=== PATIENT | female | born 1975 | race Caucasian/White ===

== ENCOUNTER 2022-03-30 16:19 | Outpatient (CLI) | payer OTHER, SELFPAY ==
--- NOTE | 2022-03-30 16:28 | ECG_ITS ---
Measurements Intervals [place] Rate: 86 P: 71 MO: 145 QRS: 77 QRSD: 90 T: 71 QT: 361 QTc: 432 Interpretive Statements SINUS RHYTHM NORMAL ECG Electronically Signed On 03-30-2022 16:50:25 CDT by Vineet Menchaca D.O.
[2022-03-30 17:10] LABS: Anion Gap 9 mmol/L (8-16); Blood Urea Nitrogen 10 mg/dL (7-17); Calcium 9.2 mg/dL (8.4-10.2); Carbon Dioxide 26 mmol/L (22-30); Chloride 104 mmol/L (98-107); Estimated Glomerular Filt Rate > 60; Glucose 141 mg/dL (65-110); Potassium 3.4 mmol/L (3.4-5.0); Sodium 139 mmol/L (137-145)
== END 2022-03-30 16:20 | disposition home or self-care (01) ==
PROVIDERS: PCP Internal Medicine Infectious Disease; Referring Provider Obstetrics & Gynecology; Visit Provider Anesthesiology
DX: E11.9 Type 2 diabetes mellitus without complications (principal); Z85.3 Personal history of malignant neoplasm of breast; I10 Essential (primary) hypertension
CPT/HCPCS: 36415; 80048; 86850; 86900; 86901; 93005

== ENCOUNTER 2022-04-03 00:05 | Day surgery (SDC) | payer OTHER, SELFPAY ==
[2022-03-26 14:36] VITALS: BMI 26.3
--- NOTE | 2022-03-26 14:38 | PC.NURSE ---
Report to the Outpatient Waiting Room, entrance under the green pavilion located off [facility], at 0600 on 04-03-22. OR Time: 0730. - You and your visitor will be asked a series of questions to screen for COVID 19 for your protection. - Only one visitor is allowed at this time. - The patient visitor is requested to leave or wait in car when not with patient. - A mask is required within the hospital. Patients may have clear liquids (water, carbonated beverages, clear teas, apple juice) until 3 hours prior to surgery with a maximum of 20 ounces. 0430 - No food from midnight until time of surgery - Infants may have breast milk until 4 hours before surgery, infant formula 6 hours prior to surgery. - Children will be allowed to drink immediately following surgery. If applicable, please bring a bottle or sippy cup to assist with drinking. Juice, water, soda, and popsicles are readily available. For infants on formula, please bring formula the day of surgery. Pacifiers are allowed. Take the following medications with a SIP of water the morning of surgery: None Medications to discontinue per physician: N/A Please no make-up, nail lithuanian, hairspray, perfume, deodorant, or body powder the day of surgery. No jewelry (including any body piercings) or valuables the day of surgery, leave them at home. Please take a shower or bath the night before, or the morning of, surgery with an antibacterial soap. Wear comfortable, loose fitting clothing. Children are encouraged to wear pajamas. - Jewelry must be removed prior to entering the operating room. Rings and piercings that are not removed may be cut off. - The hospital will not accept responsibility for valuables. - Please leave all valuables, including medications, at home the day of surgery. If you are going home after surgery, a licensed sales warehouse driver must drive you home. - NO public transportation without another adult. - We recommend that an adult stay with you for 24 hours following discharge. - We also recommend that you do not drive, make important decision, drink alcoholic beverages, or take any drugs that were not prescribed by your health care provider for at least 24 hours after your discharge time. For Pediatric surgeries, we recommend two adults accompany the child home (only one inside the building at this time). Follow any additional instructions given to you from your surgeon. If you or anyone in your household have experienced Covid symptoms in the past week, please notify your surgeon or the nurse liaison at the phone number below for possible testing. Telephone instructions given to Adelaida Villeda and asked if any additional questions and then verbalized understanding. Patient advised to call surgeon office or pre surgery nurse liaison [phone] if any additional questions.
[2022-04-03] VITALS (9 sets, daily range): BP systolic 84–140; BP diastolic 49–80; PULSE 62–104; RESP 11–18; TEMP 36.4–36.7; O2SAT 95–100
--- NOTE | 2022-04-03 06:50 | WPDANESEPPF ---
Anes - Initial Pre Proc Eval Procedure: Operation Date: 04/03/22 07:30 Proposed Procedures p Total Laparoscopic Hysterectomy with Bilateral Salpingo Oophorectomy - Lisseth Guardado MD Date/Time: 04/03/22 06:50 Surgeon: Lisseth Guardado MD Pre Op Diagnosis: hx of breast malignant neoplasm Patient Data Age: 46 Gender: F Height: 1.61 m Weight: 68.49 kg Allergies Allergy/AdvReac Type Severity Reaction Status Date / Time Contrast Media Allergy Intermediate HIVES Uncoded 03/26/22 14:01 Home Medications Medication Instructions Recorded Confirmed Type atorvastatin 40 mg tablet 40 mg PO HS 03/26/22 03/26/22 History metformin 500 mg tablet 500 mg PO BID 03/26/22 03/26/22 History valsartan 160 1 tablet PO DAILY 03/26/22 03/26/22 History mg-hydrochlorothiazide 12.5 mg tablet venlafaxine 150 mg 150 mg PO DAILY 03/26/22 03/26/22 History capsule,extended release 24 hr Patient hx anesthesia problems: none Family hx anesthesia problems: none Results Review: All pre-operative results and documents have been reviewed as part of the pre-operative evaluation. [facility] Past Medical History Medical History Breast cancer HTN (hypertension) Hyperlipidemia Smoker Surgical History Surgical History (Updated 04/03/22 @ 06:51 by Clay Fan MD) H/O umbilical hernia repair History of section History of cholecystectomy History of mastectomy History of tubal ligation Social History Social History Smoking packs per day: 1 Smoking cigarettes per day: 20.0 Years smoked: 14 Smoking pack-years: 14.00 Smoking status: Current every day smoker Tobacco type: cigarettes Second hand tobacco smoke exposure: No Alcohol intake: current Alcohol use details: occasionally Substance use: never Substance use type: does not use Living arrangements: other Spiritual care concerns: No Anes - Eval Final PreProcedure Day of Procedure 04/03/22 06:50 Patient weight: overweight Heart: regular rate and rhythm Lungs: clear to auscultation Neurological: alert and oriented Last oral intake: >/= 8 hours ASA classification: III Emergent: no Anesthetic plan: proceed Anesthesia type and monitoring: general ETT and standard monitoring Results Review: All pre-operative results and documents have been reviewed as part of the pre-operative evaluation. Informed Consent: The patient's anesthetic plan and its attendant risks and benefits were discussed with the patient/family/POA. Questions were solicited and answers provided to the satisfaction of the patient/family/POA.
--- NOTE | 2022-04-03 07:13 | WPDHPUPDATE1 ---
History and Physical Update Update Date/Time: 04/03/22 07:13 History and Physical has been reviewed, including an updated exam of the patient. There are NO changes in the patient's condition. Risks, benefits, and alternatives have been discussed and questions answered. Patient agrees to proceed with procedure.
--- NOTE | 2022-04-03 07:16 | PM.IMHP ---
H&P: HPI History of Present Illness Date/Time: 04/03/22 07:16 Chief Complaint: Breast malignancy Narrative: This patient is a 46-year-old female with breast malignancy. She has been treated recently. She would like to proceed with total laparoscopic hysterectomy and bilateral salpingo-oophorectomy. She understands there is risk. She understands that injuries may occur that result in hospitalization, more surgery, and severe illness. She understands there is risk of hemorrhage and infection. Review of Systems Review of Systems: All systems reviewed & are unremarkable except as noted in HPI and below Constitutional: Constitutional: Denies chills, Denies fatigue, Denies fever(s) and Denies weakness Eyes: Eyes: Denies blurry vision, Denies change in vision, Denies loss of peripheral vision, Denies loss of vision, Denies other visual disturbances and Denies eye pain ENT: Denies vertigo, Denies dizziness, Denies hearing loss, Denies mouth pain, Denies nasal obstruction, Denies neck mass and Denies neck pain Cardiovascular: Cardiovascular: Denies chest pain, Denies diaphoresis, Denies syncope, Denies leg edema and Denies dyspnea Respiratory: Respiratory: Denies chest congestion, Denies cough, Denies hemoptysis, Denies dyspnea and Denies wheezing Gastrointestinal: Gastrointestinal: Denies abdominal pain, Denies constipation, Denies diarrhea, Denies nausea and Denies vomiting Genitourinary: Genitourinary: Denies hematuria, Denies change in libido, Denies nocturia, Denies genital lesions, Denies flank pain and Denies urinary urgency Musculoskeletal: Musculoskeletal: Denies abnormal gait, Denies back pain, Denies myalgias, Denies arthralgias, Denies joint swelling, Denies muscle weakness and Denies neck pain Integumentary/Breasts: Skin/Breast: Denies swelling, Denies breast pain, Denies breast mass, Denies dry skin, Denies nipple discharge, Denies unusual bruising and Denies jaundice Neurologic: Denies Neuro-related abnormal movements, Denies Abnormal speech present, Denies abnormal gait, Denies behavioral changes, Denies confusion, Denies vertigo, Denies dizziness, Denies syncope, Denies loss of vision, Denies memory loss, Denies convulsions and Denies weakness Psychiatric: Psychiatric: Denies abnormal sleep pattern, Denies behavioral changes, Denies change in libido, Denies confusion, Denies depression, Denies anhedonia and Denies memory loss Endocrine: Endocrine: Reports no additional endocrine complaints, Denies change in libido and Denies fatigue Hematologic/Lymphatic: Hematologic/Lymphatic: Reports no additional hematologic/lymphatic complaints Allergic/Immunologic: Allergic/Immunologic: Reports no additional allergic/immunologic complaints and Denies wheezing PMFSH Past Medical History Medical History Breast cancer HTN (hypertension) Hyperlipidemia Smoker Surgical History Surgical History (Updated 04/03/22 @ 06:51 by Clay Fan MD) H/O umbilical hernia repair History of section History of cholecystectomy History of mastectomy History of tubal ligation Social History Social History Smoking packs per day: 1 Smoking cigarettes per day: 20.0 Years smoked: 14 Smoking pack-years: 14.00 Smoking status: Current every day smoker Tobacco type: cigarettes Second hand tobacco smoke exposure: No Alcohol intake: current Alcohol use details: occasionally Substance use: never Substance use type: does not use Living arrangements: other Spiritual care concerns: No Meds Home Medications and Allergies Home Medications Medication Instructions Recorded Confirmed Type atorvastatin 40 mg tablet 40 mg PO HS 03/26/22 04/03/22 History metformin 500 mg tablet 500 mg PO BID 03/26/22 04/03/22 History valsartan 160 1 tablet PO DAILY 03/26/22 04/03/22 History mg-hydrochlorothiazide 12.5 mg tablet venlafaxine 150 mg 150 mg PO DENA
[2022-04-03 07:17] LABS: Glucose Point of Care 157 mg/dl (65-105)
[2022-04-03] MEDS: LACTATED RINGERS 1,000 ML 30 ML IV CONT ×2 (07:21→10:32)
[2022-04-03] MEDS: KETOROLAC 15 MG/ML VIAL (*BKC) IV PUSH (07:22)
[2022-04-03] MEDS: ACETAMINOPHEN 500 MG TABLET 1000 MG PO (07:22)
--- NOTE | 2022-04-03 08:10 | SUR.PREOP ---
0793 dr ann informed pt delay in procedure
[2022-04-03] MEDS: SCOPOLAMINE 1.5 MG PATCH TRANSDERM (08:22)
--- NOTE | 2022-04-03 10:39 | W.PM.PROC2 ---
Procedure Note - Detailed Date of Procedure 04/03/22 Pre-op Diagnosis hx of breast malignant neoplasm, inherited familial cancer predisposition Post-op Diagnosis Same Procedure Performed Total laparoscopic hysterectomy and bilateral salpingo-oophorectomy. Adhesiolysis-30 minutes Surgeon Lisseth Guardado MD Anesthesia General Indications Breast cancer, inherited familial cancer predisposition. Findings Normal appearing tubes ovaries and uterus, uterus was mildly enlarged. Description of Procedure This patient was taken to the operating room. She was prepped and draped in the dorsal lithotomy position after induction of general anesthesia. The uterine manipulator and Rufus cup were placed. This was done with a speculum and tenaculum. The speculum was placed. The cervix was grasped with a tenaculum. The stay sutures were placed at 3 and 9:00 a.m.. The stay sutures of 0 Vicryl were brought through the appropriately sized Rufus cup. The tip of the AYAD manipulator was placed in the intrauterine cavity. The cup was slid into place around the cervix and into the fornices. It was locked into place. The sutures were then wrapped around the handle and tied under tension. A 5 mm skin incision was made in the left upper quadrant the abdomen. A 5 mm trocar was inserted into the intrauterine cavity under direct visualization of the scope. Pneumoperitoneum was achieved. A left lower quadrant 11 mm incision was made with scalpel. An 11 mm trocar was inserted into the anterior abdominal cavity under direct visualization the scope. A 5 mm infraumbilical incision was made with a scalpel and a 5 mm trocar was inserted the intra-abdominal cavity under direct visualization of the scope. Adhesiolysis was performed. Adhesions between the omentum the anterior abdominal wall were significant. 30 minutes of adhesiolysis were performed. There were taken down with LigaSure cautery. Bilateral ureteral lysis was performed. This was done from the pelvic brim down to the uterine artery. This was done with careful dissection using sharp and blunt dissection. The infundibulopelvic ligaments were isolated after identification of the ureters bilaterally. These infundibulopelvic ligaments were cauterized and transected with LigaSure cautery. The para ovarian tissue was cauterized and transected with LigaSure cautery bilaterally. Moving around the ovary into the broad ligament the tissue was cauterized transected with LigaSure cautery. The round ligaments were cauterized transected with LigaSure cautery this was all done in a bilateral fashion. In a stepwise fashion along the lateral aspects of the uterus the round ligament and broad ligaments were cauterized transected down to the level of the uterine arteries. A bladder flap was created in the bladder was moved distally to the end of the cervix and over the Rufus cup. The bilateral uterine arteries were cauterized and transected. Colpotomy was then performed. In a circumferential fashion the vagina was transected using unipolar cautery. The incision was made down on the Rufus cup. The uterus, cervix, fallopian tubes and ovaries were taken out through the vagina. A pneumo occluder was placed in the vagina. The vaginal cuff was closed with a 0 V lock suture in a running fashion. The pelvis was irrigated with copious amounts antibiotic irrigation. The ureters were again examined and found to be intact and flowing freely under the uterine arteries into the bladder. The bladder was intact. It was examined directly. The vagina was irrigated with Betadine solution after removal of the Pneumo occluder. The patient was taken to recovery room. She was stable condition. Sponge lap and needle counts were correct x2. Estimated Blood Loss 100 Drains Yes Packing No Pathology Yes Complications No immediate complications Condition Stable Disposition Floor
[2022-04-03] MEDS: fentaNYL CITRATE INJ (*CRX) 100 MCG/2 ML VIAL 25 MCG IV PUSH ×4 (10:52→11:14)
[2022-04-03 11:14] LABS: Glucose Point of Care 195 mg/dl (65-105)
--- NOTE | 2022-04-03 11:56 | PC.NURSE ---
This patient, Adelaida Villeda, was received from PACU on 04/03/22 at 1156 via bed. Patient oriented to unit policies and routines
[2022-04-03] MEDS: DEXTROSE 5%/0.45% SOD CHL 1,000 ML 125 ML IV CONT (12:25)
[2022-04-03] MEDS: KETOROLAC 30 MG/ML VIAL (*BKC) IV PUSH ×2 (13:44→20:59)
[2022-04-04 05:10] VITALS: BP 123/55; PULSE 92; RESP 16; TEMP 36.1
[2022-04-04] MEDS: KETOROLAC 30 MG/ML VIAL (*BKC) IV PUSH (05:13)
[2022-04-04 07:40] VITALS: BP 106/61; PULSE 92; RESP 16; TEMP 36.9; O2SAT 98
--- NOTE | 2022-04-04 08:52 | WPDANESPN ---
Anes - Prog Note Post-Op Date/Time: 04/04/22 08:52 Cardiovascular status: normal Respiratory status: normal Airway patency: baseline Mental status: baseline Post-Op hydration status: normal Vital Signs: Last Vital Signs Temp 36.9 C 04/04/22 07:40 Pulse 92 04/04/22 07:40 Resp 16 04/04/22 07:40 BP 106/61 04/04/22 07:40 Pulse Ox 98 04/04/22 07:40 O2 Del Method Room Air 04/04/22 07:10 O2 Flow Rate 10 04/03/22 10:45 Pain Score (VAS): 1 I/O: Intake & Output 04/03/22 04/04/22 04/04/22 23:59 07:59 15:59 Intake Total 300 Output Total 325 Balance -25 04/03/22 11:12 POC Capillary Glucose 195 H Post-procedural complaints: none Patient Feedback: Patient satisfied with anesthetic care.
--- NOTE | 2022-04-04 09:42 | PM.GYNPNOP ---
FORGE TENDER - A/P Postoperative Procedures: Procedures Operation Date: 04/03/22 07:30 Actual Procedure Side Surgeon p Total Laparoscopic Hysterectomy with Bilateral Salpingo Oophorectomy Bilateral Lisseth Guardado MD Postoperative day: 1 Postoperative status: doing well Postoperative plan: see orders Time Spent With Patient Time: Total time spent is greater than 50% in coordination of care (as documented) at patient's floor/unit and/or counseling patient: Time with patient: less than 15 minutes FORGE TENDER- PN:Subj Post-Op Subjective Date/time seen: 04/04/22 09:42 Subjective: patient reports feeling better, patient has no complaints and pain is well controlled Exam Const: General: healthy appearing, comfortable and no acute distress Resp: Auscultation: clear to auscultation bilaterally, no rales, no rhonchi and no wheezes Cardio: Rate: regular rate Heart sounds: no click, no murmurs and no rubs GI: Inspection: non-distended Auscultation: normal bowel sounds Extrem: General: normal to inspection, no pedal edema and no calf tenderness FORGE TENDER - PN: Obj Data Vital Signs Vital Signs: Vital Signs - 24 hr 04/03/22 10:32 04/03/22 10:45 04/03/22 11:00 Temperature 98.1 F Pulse Rate 84 72 74 Respiratory Rate 18 12 11 L Blood Pressure 138/66 126/67 140/67 Pulse Oximetry 100 100 95 Oxygen Delivery Simple Face Mask Simple Face Mask Room Air Oxygen Flow Rate 10 10 04/03/22 11:15 04/03/22 11:30 04/03/22 12:00 Temperature 97.5 F L Pulse Rate 91 86 85 Respiratory Rate 14 13 16 Blood Pressure 133/70 128/69 128/78 Pulse Oximetry 95 95 98 Oxygen Delivery Room Air Room Air Oxygen Flow Rate 04/03/22 16:50 04/03/22 19:00 04/04/22 05:10 Temperature 97.7 F 97.7 F 97.0 F L Pulse Rate 104 H 62 92 Respiratory Rate 18 16 16 Blood Pressure 124/80 84/49 L 123/55 L Pulse Oximetry 100 Oxygen Delivery Oxygen Flow Rate 04/04/22 07:10 04/04/22 07:40 Temperature 98.4 F Pulse Rate 92 Respiratory Rate 16 Blood Pressure 106/61 Pulse Oximetry 98 Oxygen Delivery Room Air Oxygen Flow Rate Intake/Output Intake/Output: Intake & Output 07/24/22 07/25/22 07/26/22 07/27/22 23:59 23:59 23:59 23:59 Intake Total 1900 Output Total 625 Balance 1275 Meds/Results Medications: Active Medications Generic Name Dose Route Start Last Admin Trade Name Freq PRN Reason Stop Dose Admin Hydrocodone Bitart/Acetaminophen 1 tab 04/03/22 11:40 Hydrocodone/Acetaminophen (*Crx) 5-325 Mg Tablet PO Q3H PRN Pain Rated 5 or Less Hydrocodone Bitart/Acetaminophen 1 tab 04/03/22 11:40 Hydrocodone/Acetaminophen (*Crx) 10-325 Mg Tablet PO Q3H PRN Pain Rated 6 or Greater Dextrose/Sodium Chloride 1,000 mls @ 125 mls/hr 04/03/22 11:40 04/04/22 06:30 Dextrose 5% Sodium Chloride 0.45% IV CONT Not Given .Q8H YVONNE Ibuprofen 600 mg 04/03/22 11:40 Ibuprofen 600 Mg Tablet PO Q6H PRN Cramping Ketorolac Tromethamine 30 mg 04/03/22 11:40 04/04/22 05:13 Ketorolac 30 Mg/Ml Vial (*Bkc) IV PUSH 04/08/22 11:39 30 mg Q6H PRN Administration Pain Rated 4-6 Naloxone HCl 0.1 mg 04/03/22 11:40 Naloxone Hcl 0.4 Mg/Ml Vial IV PUSH Q2M PRN Respiratory rate less than 10 Ondansetron HCl 4 mg 04/03/22 11:40 Ondansetron Inj 4 Mg/2 Ml Vial IV PUSH Q6H PRN Nausea And Vomiting Labs Labs: Laboratory Results - last 24 hr 04/03/22 11:12 POC Capillary Glucose 195 H
[2022-04-04] MEDS: IBUPROFEN 600 MG TABLET PO (13:13)
== END 2022-04-04 18:46 | disposition home or self-care (01) ==
LOC: ANHSURGERY 10:00 → ANHOB2 11:42
PROVIDERS: PCP Internal Medicine Infectious Disease; Visit Provider Obstetrics & Gynecology
PROC: 0UT9FZZ Resection of Uterus, Via Natural or Artificial Opening With Percutaneous Endoscopic Assistance (ICD-10-PCS; CPT 58571; principal; 2022-04-03 07:30)
DX: Z40.02 Encounter for prophylactic removal of ovary(s) (principal); N83.202 Unspecified ovarian cyst, left side; N83.201 Unspecified ovarian cyst, right side; N73.6 Female pelvic peritoneal adhesions (postinfective); Z15.09 Genetic susceptibility to other malignant neoplasm; Z85.3 Personal history of malignant neoplasm of breast; I10 Essential (primary) hypertension; E78.5 Hyperlipidemia, unspecified; F17.210 Nicotine dependence, cigarettes, uncomplicated; Z79.84 Long term (current) use of oral hypoglycemic drugs
CPT/HCPCS: 58571; 82948; 88307; 99199; A9270; J1100; J1885; J2250; J2405; J2704; J2710; J3010; J7120

== ENCOUNTER 2022-04-09 08:53 | Emergency (ER) | payer OTHER, SELFPAY ==
--- NOTE | ~2022-04-09 | CT_ITS ---
EXAMINATION: CT abdomen pelvis wo con DATE: 04/09/2022 12:03 INDICATION: Lower abdominal pain. Hysterectomy one week ago. TECHNIQUE: Computed tomography (CT) of the abdomen and pelvis was performed without intravenous contr ast. Automated exposure control and iterative reconstruction technique were employed. Exam dose: 387 .87 mGy-cm total exam DLP. COMPARISON: 06/25/2016 CT abdomen 05/17/2013 CT abdomen pelvis FINDINGS: Evidence of left mastectomy with implant reconstruction, new findings since 06/25/2016. The lung bases are clear of infiltrate or consolidation. Normal heart size. No pericardial or pleural effusion. Status post cholecystectomy since 06/25/2016. No hepatic, splenic, pancreatic, and adrenal or renal s pace-occupying mass lesion. Approximately 10.8 cm vertical dimension of spleen, within upper normal r katherin. No bile duct or pancreatic duct dilatation. No urinary tract calculus or hydroureteronephrosis. There is atherosclerotic calcification but normal caliber of the abdominal aorta. Approximately 2.2 x 2.4 cm fat-containing umbilical hernia. Status post ventral abdominal wall mesh r epair. The urinary bladder appears unremarkable. Status post hysterectomy one week ago by clinical history. There is moderately prominent amount of hi gh density fluid in the dependent pelvis and left paracolic gutter suggesting hemorrhage. No bowel obstruction or intraperitoneal free air. No suspicious osteolytic or osteoblastic lesions. IMPRESSION: Status post hysterectomy; likely hemorrhage in the pelvis and left paracolic gutter Status post left mastectomy with breast implant reconstruction Status post cholecystectomy Ventral abdominal wall mesh repair Reviewed, dictated and finalized at [facility]. Reviewed, dictated and finalized at [facility].
[2022-04-09 08:54] VITALS: BP 146/79; PULSE 124; RESP 20; TEMP 36.6; O2SAT 99
[2022-04-09 09:07] LABS: Basophils Percent Auto 0.3 % (0.2-1.2); Eosinophils Absolute Auto 0.1 K/mm3 (0-0.3); Eosinophils Percent Auto 0.5 % (0-4.4); Hemoglobin 10.1 g/dL (12.0-15.0); Immature Granulocyte Absolute 0.07 K/mm3 (0.00-0.031); Immature Granulocyte Percent A 0.5 % (0-0.5); Lymphocytes Absolute Auto 1.88 K/mm3 (0.9-3.2); Lymphocytes Percent Auto 14.1 % (18.3-44.2); Mean Corpuscular HGB Conc 32.6 g/dl (32-36); Mean Corpuscular Hemoglobin 32.4 pg (26-34); Mean Corpuscular Volume 99.4 fl (80-100); Mean Platelet Volume 11.2 fl (7.4-10.4); Monocytes Absolute Auto 1.1 K/mm3 (0.1-0.6); Monocytes Percent Auto 7.8 % (2.6-8.5); Neutrophils Absolute Auto 10.3 K/mm3 (1.3-6.7); Neutrophils Percent Auto 76.8 % (45.5-73.1); Platelet Count Result 283 k/mm3 (150-375); Red Blood Count 3.12 M/mm3 (4.2-5.4); Red Cell Distribution Width 13.9 % (11.5-14.5); White Blood Count 13.4 K/mm3 (4.5-10.0)
[2022-04-09 09:19] LABS: Alanine Aminotransferase 16 U/L (6-35); Albumin Level 4.4 g/dL (3.5-5.1); Alkaline Phosphatase 92 U/L (38-126); Anion Gap 12 mmol/L (8-16); Aspartate Amino Transferase 17 U/L (14-36); Bilirubin,Total 1.5 mg/dL (0.2-1.3); Blood Urea Nitrogen 7 mg/dL (7-17); Calcium 9.2 mg/dL (8.4-10.2); Carbon Dioxide 28 mmol/L (22-30); Chloride 100 mmol/L (98-107); Estimated CRCL calculation 83 ml/min; Estimated Glomerular Filt Rate > 60; Glucose 190 mg/dL (65-110); Potassium 3.8 mmol/L (3.4-5.0); Sodium 140 mmol/L (137-145)
--- NOTE | 2022-04-09 12:00 | PC.NURSE ---
Patient refusing IV placement at this time. Patient aware of the need for more lab tests. EDP Martinez aware.
--- NOTE | 2022-04-09 12:09 | ED.FEMALEGU ---
HPI - Female Genitourinary General Chief complaint: Vaginal Bleeding Stated complaint: post op bleeding, fever Time Seen by Provider: 04/09/22 11:30 History of Present Illness HPI Narrative: pt says last week vaginal hyst last week Dr Guardado and doing well bleeding stopped then says yesterday more lower back/lower abd pain and fever and bleeding again no other n/v/d/urine chagnes/cp0/sob/trauma or other c/o last took tylenol at 0600 Related Data Home Medications Medication Instructions Recorded Confirmed atorvastatin 40 mg tablet 40 mg PO HS 03/26/22 04/03/22 metformin 500 mg tablet 500 mg PO BID 03/26/22 04/03/22 valsartan 160 1 tablet PO DAILY 03/26/22 04/03/22 mg-hydrochlorothiazide 12.5 mg tablet venlafaxine 150 mg 150 mg PO DAILY 03/26/22 04/03/22 capsule,extended release 24 hr Allergies Allergy/AdvReac Type Severity Reaction Status Date / Time Contrast Media Allergy Intermediate HIVES Uncoded 04/03/22 06:58 Review of Systems Constitutional: Comments: CONSTITUTIONAL: has fever, chills, no sweats. EYES: Denies visual changes, redness, or discharge. ENT: Denies rhinorrhea, congestion, sore throat, or otalgia. CARDIOVASCULAR: Denies chest pain, palpitations, or edema. RESPIRATORY: Denies cough or dyspnea. GASTROINTESTINAL: has abdominal pain, no nausea, vomiting, or diarrhea. GENITOURINARY: Denies dysuria or hematuria. has vaginal bleeding post vaginal hyst SKIN: Denies rash or itching. MUSCULOSKELETAL: Denies back pain, joint pain, or myalgia. NEUROLOGIC: Denies headache, numbness, or weakness. PSYCHIATRIC: Denies anxiety or depression. [facility] Past Medical History Medical History Breast cancer HTN (hypertension) Hyperlipidemia Smoker Surgical History Surgical History (Updated 04/03/22 @ 06:51 by Clay Fan MD) H/O umbilical hernia repair History of section History of cholecystectomy History of mastectomy History of tubal ligation Social History Social History Smoking packs per day: 1 Smoking cigarettes per day: 20.0 Years smoked: 14 Smoking pack-years: 14.00 Smoking status: Current every day smoker Tobacco type: cigarettes Second hand tobacco smoke exposure: No Alcohol intake: current Alcohol use details: occasionally Substance use: never Substance use type: does not use Spiritual care concerns: No Exam Const: Other: APPEARANCE: Well appearing, no pain in distress, well-nourished. Head normocephalic atraumtaic. EYES: PERRLA/EOMI, conjunctivae very clear. NOSE: Normal no drainage EARS:TMS clear Ivett Eaton, with good light reflex. THROAT: Pharynx clear, no exudate. NECK: Supple. No adenopathy, no masses. RESPIRATORY: Airway patent, repsirations nonlabored. Clear to auscultation bilaterally, no rales, rhonchi, wheezing. CARDIOVASCULAR: Regular rate and rhythm without murmurs rubs or gallops. ABDOMINAL: Soft, tend llq, nondistended, no hepatosplenomegally no cva tend decreased bs MUSCULOSKELETAl: Moves all extremities. Strenght/ROM intact, No edema, No calf tenderness. NEURO: Alert. Cranial nerves II through XII intact. Good gait. Good coordination SKIN:: Warm, dry. Normal Color PSYCHIATRIC: Normal affect/mood, normal interaction with parents. Course Vital Signs Vital signs: Vital Signs Temperature 36.6 C 04/09/22 08:54 Pulse Rate 124 H 04/09/22 08:54 Respiratory Rate 20 04/09/22 08:54 Blood Pressure 146/79 H 04/09/22 08:54 Pulse Oximetry 99 04/09/22 08:54 Oxygen Delivery Room Air 04/09/22 08:54 Temperature 37.2 C 04/09/22 12:44 Pulse Rate 92 04/09/22 12:44 Respiratory Rate 18 04/09/22 12:44 Blood Pressure 146/72 H 04/09/22 12:44 Pulse Oximetry 98 04/09/22 12:44 Oxygen Delivery Room Air 04/09/22 08:54 MDM - Female Genitourinary MDM Narrative Medical decision making narrative: updated pt and talked with DR Guardado at 1250 he's coming
[2022-04-09] MEDS: ACETAMINOPHEN 500 MG TABLET 1000 MG PO (12:15)
[2022-04-09 12:18] VITALS: TEMP 37.3
[2022-04-09 12:18] LABS: INR 1.2; Partial Thromboplastin Time 24.6 SECONDS (22.3-36.8); Prothrombin Time 14.3 Seconds (11.1-14.7)
[2022-04-09 12:22] LABS: CRP 22.4 mg/dL (<1.0)
[2022-04-09 12:44] VITALS: BP 146/72; PULSE 92; RESP 18; TEMP 37.2; O2SAT 98
[2022-04-09 12:52] LABS: Appearance Urine Slightly Cloudy (Clear); Bilirubin Urine 1+ (Negative); Blood Urine 2+ (Negative); Glucose Urine UA Negative (Negative); Ketones Urine 1+ mg/dL (Negative); Leukocyte Esterase Ur Negative LEU/UL (Negative); Nitrate Urine Negative (Negative); Protein Urine Trace mg/dL (Negative); Urobilinogen Urine >=8.0 mg/dL (<2.0); pH Urine 5.5 (5.0-9.0)
[2022-04-09 13:00] LABS: Bacteria Urine Trace /hpf; Mucus Urine Rare /lpf; RBC Urine 0-2 /hpf (0-2); Squamous Epithelial Cell Urine Rare /hpf (Few); WBC Urine 0-3 /hpf
[2022-04-09 13:01] LABS: Add Urine Microscopic? YES; Color Urine Dark Yellow (Yellow)
--- NOTE | 2022-04-09 13:07 | PC.NURSE ---
pt is still refusing this tech to draw her blood culters and lactic. pt says they already know what's wrong with me, I'm a hard stick, and it hurts
[2022-04-09] MEDS: cefTRIAXone 1 GM VIAL IM (13:40)
--- NOTE | 2022-04-11 09:43 | HP_ITS ---
This report was moved to the correct visit on 05/01/22. Original report was signed by Lisseth Guardado MD 04/11/22 0955. H&P: HPI History of Present Illness Date/Time: 04/11/22 09:40 Chief Complaint: Fever Narrative: This patient is a 46-year-old female who presents for postoperative fever and vaginal bleeding. She was examined in the office. There was a scant amount of bleeding in the vagina. We attempted to put a drain in the office. She had to stop. She reports fever but did not have a specific temperature reading to report. She denies any nausea or vomiting or chills. She denies any chest pain or shortness of breath. She is 1 week postop from total laparoscopic hysterectomy. Her recovery was seemingly normal until she reported to the emergency department with a fever of 102. Her body temperature was normal at the visit. She is discharged with oral antibiotics. She Review of Systems Review of Systems: All systems reviewed & are unremarkable except as noted in HPI and below Constitutional: Constitutional: Denies chills, Denies fatigue, Denies fever(s) and Denies weakness Eyes: Eyes: Denies blurry vision, Denies change in vision, Denies loss of peripheral vision, Denies loss of vision, Denies other visual disturbances and Denies eye pain ENT: Denies vertigo, Denies dizziness, Denies hearing loss, Denies mouth pain, Denies nasal obstruction, Denies neck mass and Denies neck pain Cardiovascular: Cardiovascular: Denies chest pain, Denies diaphoresis, Denies syncope, Denies leg edema and Denies dyspnea Respiratory: Respiratory: Denies chest congestion, Denies cough, Denies hemoptysis, Denies dyspnea and Denies wheezing Gastrointestinal: Gastrointestinal: Denies abdominal pain, Denies constipation, Denies diarrhea, Denies nausea and Denies vomiting Genitourinary: Genitourinary: Denies hematuria, Denies change in libido, Denies nocturia, Denies genital lesions, Denies flank pain and Denies urinary urgency Musculoskeletal: Musculoskeletal: Denies abnormal gait, Denies back pain, Denies myalgias, Denies arthralgias, Denies joint swelling, Denies muscle weakness and Denies neck pain Integumentary/Breasts: Skin/Breast: Denies swelling, Denies breast pain, Denies breast mass, Denies dry skin, Denies nipple discharge, Denies unusual bruising and Denies jaundice Neurologic: Denies Neuro-related abnormal movements, Denies Abnormal speech present, Denies abnormal gait, Denies behavioral changes, Denies confusion, Denies vertigo, Denies dizziness, Denies syncope, Denies loss of vision, Denies memory loss, Denies convulsions and Denies weakness Psychiatric: Psychiatric: Denies abnormal sleep pattern, Denies behavioral changes, Denies change in libido, Denies confusion, Denies depression, Denies anhedonia and Denies memory loss Endocrine: Endocrine: Reports no additional endocrine complaints, Denies change in libido and Denies fatigue Hematologic/Lymphatic: Hematologic/Lymphatic: Reports no additional hematologic/lymphatic complaints Allergic/Immunologic: Allergic/Immunologic: Reports no additional allergic/immunologic complaints and Denies wheezing PMFSH Past Medical History Medical History Breast cancer HTN (hypertension) Hyperlipidemia Smoker Surgical History Surgical History (Updated 04/03/22 @ 06:51 by Clay Fan MD) H/O umbilical hernia repair History of section History of cholecystectomy History of mastectomy History of tubal ligation Social History Social History Smoking packs per day: 1 Smoking cigarettes per day: 20.0 Years smoked: 20 Smoking pack-years: 20.00 Smoking status: Current every day
== END 2022-04-09 13:47 | disposition home or self-care (01) ==
PROVIDERS: Emergency Provider Emergency Medicine; PCP Obstetrics & Gynecology
DX: N99.840 Postprocedural hematoma of a genitourinary system organ or structure following a genitourinary system procedure (principal); R50.82 Postprocedural fever; I10 Essential (primary) hypertension; Z90.710 Acquired absence of both cervix and uterus; E78.5 Hyperlipidemia, unspecified; Z85.3 Personal history of malignant neoplasm of breast; Z90.10 Acquired absence of unspecified breast and nipple; F17.210 Nicotine dependence, cigarettes, uncomplicated
CPT/HCPCS: 36415; 74176; 80053; 81001; 81025; 85025; 85610; 85730; 86140; 96372; 99284; A9270; J0696

== ENCOUNTER 2022-04-10 11:13 | Observation (INO) | payer OTHER, SELFPAY ==
--- NOTE | 2022-04-10 12:36 | PC.NURSE ---
clarified orders with MD Guardado.
[2022-04-10 14:00] VITALS: BP 123/63; PULSE 114; RESP 19; TEMP 36.9; O2SAT 99
[2022-04-10] MEDS: ACETAMINOPHEN 325 MG TABLET 650 MG PO ×2 (14:00→19:51)
[2022-04-10] MEDS: DEXTROSE 5%/LACTATED RINGERS 1,000 ML 125 ML IV CONT ×2 (14:22→22:36)
--- NOTE | 2022-04-10 17:49 | PC.NURSE ---
cmp and cbc ordered per MD Guardado for tomorrow morning
--- NOTE | 2022-04-10 19:18 | PC.NURSE ---
PT NPO at midnight for possible procedure per MD Guardado tomorrow.
[2022-04-10 19:51] VITALS: TEMP 37.3
[2022-04-10 20:50] VITALS: TEMP 36.9
[2022-04-10 21:39] VITALS: BP 112/56; PULSE 99; RESP 18; TEMP 37.2; O2SAT 97
[2022-04-11 05:52] VITALS: BP 101/65; PULSE 92; RESP 18; TEMP 37.7; O2SAT 96
[2022-04-11] MEDS: DEXTROSE 5%/LACTATED RINGERS 1,000 ML 125 ML IV CONT ×2 (06:29→13:45)
[2022-04-11] MEDS: ACETAMINOPHEN 325 MG TABLET 650 MG PO (06:31)
[2022-04-11 06:58] LABS: Basophils Percent Auto 0.3 % (0.2-1.2); Eosinophils Absolute Auto 0.2 K/mm3 (0-0.3); Eosinophils Percent Auto 1.6 % (0-4.4); Hematocrit 27.2 % (37.0-47.0); Hemoglobin 8.8 g/dL (12.0-15.0); Immature Granulocyte Absolute 0.13 K/mm3 (0.00-0.031); Immature Granulocyte Percent A 1.3 % (0-0.5); Lymphocytes Absolute Auto 1.54 K/mm3 (0.9-3.2); Lymphocytes Percent Auto 14.9 % (18.3-44.2); Mean Corpuscular HGB Conc 32.4 g/dl (32-36); Mean Corpuscular Hemoglobin 32.1 pg (26-34); Mean Corpuscular Volume 99.3 fl (80-100); Mean Platelet Volume 11.3 fl (7.4-10.4); Monocytes Percent Auto 9.7 % (2.6-8.5); Neutrophils Absolute Auto 7.5 K/mm3 (1.3-6.7); Neutrophils Percent Auto 72.2 % (45.5-73.1); Platelet Count Result 287 k/mm3 (150-375); Red Blood Count 2.74 M/mm3 (4.2-5.4); Red Cell Distribution Width 13.8 % (11.5-14.5); White Blood Count 10.3 K/mm3 (4.5-10.0)
[2022-04-11 07:00] VITALS: TEMP 36.1
[2022-04-11 07:18] LABS: Alanine Aminotransferase 11 U/L (6-35); Albumin Level 3.5 g/dL (3.5-5.1); Alkaline Phosphatase 80 U/L (38-126); Anion Gap 7 mmol/L (8-16); Aspartate Amino Transferase 13 U/L (14-36); Bilirubin,Total 0.8 mg/dL (0.2-1.3); Blood Urea Nitrogen 5 mg/dL (7-17); Calcium 8.2 mg/dL (8.4-10.2); Carbon Dioxide 27 mmol/L (22-30); Chloride 102 mmol/L (98-107); Estimated Glomerular Filt Rate > 60; Glucose 227 mg/dL (65-110); Potassium 3.2 mmol/L (3.4-5.0); Sodium 136 mmol/L (137-145)
[2022-04-11 08:00] VITALS: PULSE 92; RESP 18; O2SAT 96
[2022-04-11] MEDS: metroNIDAZOLE 500 MG/ISO 100ML 500 MG/100 ML BAG 100 MG IVPB ×2 (08:39→14:38)
--- NOTE | 2022-04-11 08:43 | PC.NURSE ---
called MD Guardado office to see what plan was for pt today, awaiting call back.
--- NOTE | 2022-04-11 08:59 | PC.NURSE ---
Per MD Guardado pt to go to surgery today.
--- NOTE | 2022-04-11 09:40 | PM.IMHP ---
H&P: HPI History of Present Illness Date/Time: 04/11/22 09:40 Chief Complaint: Fever Narrative: This patient is a 46-year-old female who presents for postoperative fever and vaginal bleeding. She was examined in the office. There was a scant amount of bleeding in the vagina. We attempted to put a drain in the office. She had to stop. She reports fever but did not have a specific temperature reading to report. She denies any nausea or vomiting or chills. She denies any chest pain or shortness of breath. She is 1 week postop from total laparoscopic hysterectomy. Her recovery was seemingly normal until she reported to the emergency department with a fever of 102. Her body temperature was normal at the visit. She is discharged with oral antibiotics. She Review of Systems Review of Systems: All systems reviewed & are unremarkable except as noted in HPI and below Constitutional: Constitutional: Denies chills, Denies fatigue, Denies fever(s) and Denies weakness Eyes: Eyes: Denies blurry vision, Denies change in vision, Denies loss of peripheral vision, Denies loss of vision, Denies other visual disturbances and Denies eye pain ENT: Denies vertigo, Denies dizziness, Denies hearing loss, Denies mouth pain, Denies nasal obstruction, Denies neck mass and Denies neck pain Cardiovascular: Cardiovascular: Denies chest pain, Denies diaphoresis, Denies syncope, Denies leg edema and Denies dyspnea Respiratory: Respiratory: Denies chest congestion, Denies cough, Denies hemoptysis, Denies dyspnea and Denies wheezing Gastrointestinal: Gastrointestinal: Denies abdominal pain, Denies constipation, Denies diarrhea, Denies nausea and Denies vomiting Genitourinary: Genitourinary: Denies hematuria, Denies change in libido, Denies nocturia, Denies genital lesions, Denies flank pain and Denies urinary urgency Musculoskeletal: Musculoskeletal: Denies abnormal gait, Denies back pain, Denies myalgias, Denies arthralgias, Denies joint swelling, Denies muscle weakness and Denies neck pain Integumentary/Breasts: Skin/Breast: Denies swelling, Denies breast pain, Denies breast mass, Denies dry skin, Denies nipple discharge, Denies unusual bruising and Denies jaundice Neurologic: Denies Neuro-related abnormal movements, Denies Abnormal speech present, Denies abnormal gait, Denies behavioral changes, Denies confusion, Denies vertigo, Denies dizziness, Denies syncope, Denies loss of vision, Denies memory loss, Denies convulsions and Denies weakness Psychiatric: Psychiatric: Denies abnormal sleep pattern, Denies behavioral changes, Denies change in libido, Denies confusion, Denies depression, Denies anhedonia and Denies memory loss Endocrine: Endocrine: Reports no additional endocrine complaints, Denies change in libido and Denies fatigue Hematologic/Lymphatic: Hematologic/Lymphatic: Reports no additional hematologic/lymphatic complaints Allergic/Immunologic: Allergic/Immunologic: Reports no additional allergic/immunologic complaints and Denies wheezing PMFSH Past Medical History Medical History Breast cancer HTN (hypertension) Hyperlipidemia Smoker Surgical History Surgical History (Updated 04/03/22 @ 06:51 by Clay Fan MD) H/O umbilical hernia repair History of section History of cholecystectomy History of mastectomy History of tubal ligation Social History Social History Smoking packs per day: 1 Smoking cigarettes per day: 20.0 Years smoked: 20 Smoking pack-years: 20.00 Smoking status: Current every day smoker Tobacco type: cigarettes Second hand tobacco smoke exposure: Yes Smoking end date: 04/10/22 Alcohol intake: current Alcohol use details: occasionally Substance use: never Substance use type: does not use Spiritual care concerns: No Meds Home Medications and Allergies Home Medications Medication Instructions Recorded Confirmed Ty
--- NOTE | 2022-04-11 10:13 | PC.NURSE ---
called MD Guardado for potassium order potassium 3.2, awaiting call back.
--- NOTE | 2022-04-11 10:15 | PC.NURSE ---
Per MD Guardado no surgery, continue abt therapy at this time.
[2022-04-11 13:21] VITALS: BP 148/73; PULSE 96; RESP 16; TEMP 36.3; O2SAT 98
--- NOTE | 2022-04-11 14:09 | PC.NURSE ---
Discharge paperwork explained to pt, pt to finish abt therapy cefepime and flagyl then ok to discharge home with self care. MD Guardado wants pt to continue post op abt's already prescribed to pt prior to admission. No medication to fern picker from pharmacy. IV to be removed once abt's finished.
[2022-04-11] MEDS: PHARMACIST COMMUNICATION ORDER 1 EACH XX (14:23)
--- NOTE | 2022-06-07 22:16 | PM.OBTRLD ---
OB - Triage/Final Diagnosis Visit Information Comments/Additional reasons for admission: I have assessed the risk for this patient, Adelaida Villeda, and determined that she would benefit from observation care. Evaluation Laboratory results: Laboratory Tests 04/11/22 04/11/22 05:46 05:46 WBC 10.3 H RBC 2.74 L Hgb 8.8 L Hct 27.2 L MCV 99.3 MCH 32.1 MCHC 32.4 RDW 13.8 Plt Count 287 MPV 11.3 H Immature Gran % (Auto) 1.3 H Neut % (Auto) 72.2 Lymph % (Auto) 14.9 L [place] % (Auto) 9.7 H Eos % (Auto) 1.6 Baso % (Auto) 0.3 Lymph # (Auto) 1.54 [place] # (Auto) 1.0 H Eos # (Auto) 0.2 Baso # (Auto) 0.0 Abs Immat Gran (auto) 0.13 H Absolute Neuts (auto) 7.5 H Absolute Nucleated RBC 0.0 Nucleated RBC % 0.0 Sodium 136 L Potassium 3.2 L Chloride 102 Carbon Dioxide 27 Anion Gap 7 L BUN 5 L Creatinine 0.60 L Estim Creat Clear Calc Not Reportable Estimated GFR > 60 Glucose 227 H Calcium 8.2 L Total Bilirubin 0.8 AST 13 L ALT 11 Alkaline Phosphatase 80 Total Protein 6.0 L Albumin 3.5 Final Diagnosis (1) Postoperative fever: Code(s): R50.82 - Postprocedural fever Status: Acute
== END 2022-04-11 15:50 | disposition home or self-care (01) ==
PROVIDERS: Admitting Provider Obstetrics & Gynecology; Visit Provider Obstetrics & Gynecology
DX: O26.899 Other specified pregnancy related conditions, unspecified trimester (principal); R50.82 Postprocedural fever; Z3A.00 Weeks of gestation of pregnancy not specified
CPT/HCPCS: 36415; 80053; 85025; 96361; 96365; 96366; 96367; A9270; G0378; G0379; J0692; J7121

== ENCOUNTER 2023-04-08 09:26 | Outpatient (CLI) | payer OTHER, SELFPAY ==
--- NOTE | ~2023-04-08 | XR_ITS ---
EXAMINATION: XR_ENEMABAC_CR DATE: 04/08/2023 10:20 INDICATION: Constipation. Incomplete colonoscopy. TECHNIQUE: A sports equipment racker radiograph was obtained. A catheter was inserted into the patient's rectum. Contra st was infused by gravity. Gas was infused by hand pump. Fluoroscopic spot images and conventional ra diographs were obtained. Fluoroscopy exposure time was 0.7 minutes. The total number of images was 50 . COMPARISON: CT abdomen and pelvis 04/09/2022, enema 10/21/18 FINDINGS: There are surgical clips from ventral hernia repair. Surgical clips in the right upper quad rant are likely from cholecystectomy. There are no dilated loops of bowel. There is no mass or strict ure. IMPRESSION: 1. Normal double contrast enema. Reviewed, dictated and finalized at location A.
== END 2023-04-08 09:27 | disposition home or self-care (01) ==
LOC: ANHIMG 09:27
PROVIDERS: Visit Provider Internal Medicine Gastroenterology
DX: Z53.09 Procedure and treatment not carried out because of other contraindication (principal)
CPT/HCPCS: 74280

== ENCOUNTER 2023-04-14 17:13 | Emergency (ER) | payer OTHER, SELFPAY ==
--- NOTE | ~2023-04-14 | CT_ITS ---
Non-contrast CT scan of the Abdomen and Pelvis Clinical indication: Abdominal pain Technique: 2.5 mm axial scans were obtained through the abdomen and pelvis without intravenous or or al contrast. Dose reduction technique was used on this scan by utilizing automated exposure control a nd iterative reconstruction technique. The dose-length product (DLP) was 859.21 mGy-cm. COMPARISON: 04/09/2022 Findings: Images through the lung bases reveal no abnormalities. There is extensive streak artifact related to markedly hyperdense oral contrast/barium throughout the large bowel. The visualized liver, spleen, pancreas, kidneys, and adrenals are grossly normal. Maral cystectomy clips are noted. There are atherosclerotic calcifications of the aorta. There is no evidence of bowel obstruction. Images through the pelvis were performed. There is no evidence of ascites or lymphadenopathy. Urinary bladder unremarkable. Patient appears to be post hysterectomy. No adnexal mass evident. Impression: No acute abnormality identified. Exam is significantly degraded due to marked streak artifact related to large amount of markedly hyperdense oral contrast/barium throughout the large bowel. Reviewed, dictated and finalized at location . Impression: No acute abnormality identified. Exam is significantly degraded due to marked s treak artifact related to large amount of markedly hyperdense oral contrast/bar ium throughout the large bowel.
[2023-04-14 17:16] VITALS: BP 139/75; PULSE 80; RESP 19; O2SAT 100
[2023-04-14] MEDS: MORPHINE SULFATE (*CRX) 4 MG/ML INJ IV PUSH (17:41)
[2023-04-14] MEDS: ONDANSETRON INJ 4 MG/2 ML VIAL IV PUSH (17:41)
[2023-04-14 17:54] LABS: Basophils Percent Auto 0.5 % (0.2-1.2); Eosinophils Percent Auto 0.1 % (0-4.4); Immature Granulocyte Absolute 0.01 K/mm3 (0.00-0.031); Immature Granulocyte Percent A 0.1 % (0-0.5); Lymphocytes Absolute Auto 3.09 K/mm3 (0.9-3.2); Lymphocytes Percent Auto 41.6 % (18.3-44.2); Mean Corpuscular HGB Conc 34.9 g/dl (32-36); Mean Corpuscular Hemoglobin 32.7 pg (26-34); Mean Corpuscular Volume 93.7 fl (80-100); Mean Platelet Volume 12.3 fl (7.4-10.4); Monocytes Absolute Auto 0.8 K/mm3 (0.1-0.6); Monocytes Percent Auto 10.2 % (2.6-8.5); Neutrophils Absolute Auto 3.5 K/mm3 (1.3-6.7); Neutrophils Percent Auto 47.5 % (45.5-73.1); Platelet Count Result 186 k/mm3 (150-375); Red Blood Count 4.59 M/mm3 (4.2-5.4); Red Cell Distribution Width 12.7 % (11.5-14.5); White Blood Count 7.4 K/mm3 (4.5-10.0)
--- NOTE | 2023-04-14 18:07 | ED.ABDPAIN ---
HPI - Abdominal Pain General Chief Complaint: Abdominal Pain Stated Complaint: Conspitated Time Seen by Provider: 04/14/23 17:23 History of Present Illness HPI narrative: Patient is a 47-year-old female who presents ER with left-sided abdominal pain. Left upper quadrant. Has had some discomfort in her abdomen since a barium enema on 04/08/2023 which was normal in its evaluation. She reports she has had a few yellow stools since then related to Linzess use. No fevers or chills or sweats. No aggravating or alleviating factors of her discomfort. No history of diverticulitis. Denies urinary frequency urgency or dysuria. Related Data Home Medications Medication Instructions Recorded Confirmed atorvastatin 40 mg tablet 40 mg PO HS 03/26/22 04/10/22 metformin 500 mg tablet 500 mg PO BID 03/26/22 04/10/22 valsartan 160 1 tablet PO DAILY 03/26/22 04/10/22 mg-hydrochlorothiazide 12.5 mg tablet venlafaxine 150 mg 150 mg PO DAILY 03/26/22 04/10/22 capsule,extended release 24 hr Allergies Allergy/AdvReac Type Severity Reaction Status Date / Time Contrast Media Allergy Intermediate HIVES Uncoded 04/03/22 06:58 [facility] Past Medical History Medical History Breast cancer HTN (hypertension) Hyperlipidemia Smoker Surgical History Surgical History (Updated 04/03/22 @ 06:51 by Clay Fan MD) H/O umbilical hernia repair History of section History of cholecystectomy History of mastectomy History of tubal ligation Social History Social History Smoking packs per day: 1 Smoking cigarettes per day: 20.0 Years smoked: 20 Smoking pack-years: 20.00 Smoking status: Current every day smoker Tobacco type: cigarettes Second hand tobacco smoke exposure: Yes Smoking end date: 04/10/22 Alcohol intake: current Alcohol use details: occasionally Substance use: never Substance use type: does not use Living arrangements: other Spiritual care concerns: No Exam Narrative: GENERAL: Well-appearing, well-nourished, and in no acute distress. HEAD: Normocephalic, atraumatic. ENT: Mucous membranes moist. CHEST: Clear to auscultation. No respiratory distress. HEART: Regular rate and rhythm. Normal peripheral pulses. ABDOMEN: Soft, nontender, nondistended. EXTREMITIES: Normal range of motion. No edema. SKIN: Warm, dry, no rash. NEURO: Alert and oriented x3. PSYCH: Normal mood and affect. Course Course Emergency Course: Patient resting comfortably. Informed of results. Discussed bowel regimen for home. Discharge. Vital Signs Vital signs: Vital Signs Pulse Rate 80 04/14/23 17:16 Respiratory Rate 19 04/14/23 17:16 Blood Pressure 139/75 04/14/23 17:16 Pulse Oximetry 100 04/14/23 17:16 Oxygen Delivery Room Air 04/14/23 17:16 Pulse Rate 88 04/14/23 20:37 Respiratory Rate 16 04/14/23 20:37 Blood Pressure 115/69 04/14/23 20:37 Pulse Oximetry 98 04/14/23 20:37 Oxygen Delivery Room Air 04/14/23 17:16 MDM - Abdominal Pain Lab Data 04/14/23 17:41 04/14/23 17:41 Labs: Lab Results 04/14/23 Range/Units 17:41 WBC 7.4 (4.5-10.0) K/mm3 RBC 4.59 (4.2-5.4) M/mm3 Hgb 15.0 D (12.0-15.0) g/dL Hct 43.0 (37.0-47.0) % MCV 93.7 (80-100) fl MCH 32.7 (26-34) pg MCHC 34.9 (32-36) g/dl RDW 12.7 (11.5-14.5) % Plt Count 186 (150-375) k/mm3 MPV 12.3 H (7.4-10.4) fl Immature Gran % (Auto) 0.1 (0-0.5) % Neut % (Auto) 47.5 (45.5-73.1) % Lymph % (Auto) 41.6 (18.3-44.2) % [place] % (Auto) 10.2 H (2.6-8.5) % Eos % (Auto) 0.1 (0-4.4) % Baso % (Auto) 0.5 (0.2-1.2) % Lymph # (Auto) 3.09 (0.9-3.2) K/mm3 [place] # (Auto) 0.8 H (0.1-0.6) K/mm3 Eos # (Auto) 0.0 (0-0.3) K/mm3 Baso # (Auto) 0.0 (0.0-0.1) K/mm3 Abs Immat Gran (auto) 0.01 (0.00-0.031) K/mm3 Absolute Neuts (auto) 3.5 (1.3-6.7) K/mm3 Absolute Nucleat
[2023-04-14 18:08] LABS: Alanine Aminotransferase 20 U/L (6-35); Albumin Level 4.5 g/dL (3.5-5.1); Alkaline Phosphatase 119 U/L (38-126); Anion Gap 7 mmol/L (8-16); Aspartate Amino Transferase 23 U/L (14-36); Bilirubin,Total 0.5 mg/dL (0.2-1.3); Blood Urea Nitrogen 8 mg/dL (7-17); Calcium 9.2 mg/dL (8.4-10.2); Carbon Dioxide 26 mmol/L (22-30); Chloride 102 mmol/L (98-107); Estimated CRCL calculation 76 ml/min; Estimated Glomerular Filt Rate > 60; Glucose 143 mg/dL (65-110); Lipase 81 U/L (23-300); Potassium 3.5 mmol/L (3.4-5.0); Sodium 135 mmol/L (137-145)
[2023-04-14 18:17] VITALS: BP 121/69; PULSE 84; O2SAT 97
[2023-04-14 18:30] VITALS: O2SAT 97
[2023-04-14 18:31] VITALS: BP 119/79; O2SAT 97
[2023-04-14 20:37] VITALS: BP 115/69; PULSE 88; RESP 16; O2SAT 98
== END 2023-04-14 20:38 | disposition home or self-care (01) ==
PROVIDERS: Emergency Provider Emergency Medicine; PCP Internal Medicine
DX: K59.00 Constipation, unspecified (principal); I10 Essential (primary) hypertension; E78.5 Hyperlipidemia, unspecified; Z85.3 Personal history of malignant neoplasm of breast; Z87.891 Personal history of nicotine dependence; Z90.10 Acquired absence of unspecified breast and nipple; Z90.49 Acquired absence of other specified parts of digestive tract; Z79.84 Long term (current) use of oral hypoglycemic drugs
CPT/HCPCS: 36415; 74176; 80053; 83690; 85025; 96374; 96375; 99284; J2270; J2405

== ENCOUNTER 2025-07-23 12:14 | Outpatient (CLI) | payer OTHER, SELFPAY ==
--- NOTE | ~2025-07-23 | US_ITS ---
US abdomen limited Indication: Reducible umbilical hernia Comparison: None Technique: Eaton-scale and color Doppler images were obtained. Findings: Correlating with the palpable area there is an umbilical hernia containing fat, no abnormal flow is noted within bowel demonstrated, the defect in the abdominal wall measures 7 mm, but maximally measures 1.8 x 2.5 x 1.7 cm with no significant change in Valsalva. IMPRESSION: Hernia detailed above. Reviewed, dictated and finalized at location P. TESTER IMPRESSION: Hernia detailed above.
== END 2025-07-23 12:15 | disposition home or self-care (01) ==
PROVIDERS: PCP Internal Medicine; Visit Provider Internal Medicine Infectious Disease
DX: K42.9 Umbilical hernia without obstruction or gangrene (principal)
CPT/HCPCS: 76705